=== PATIENT | female | born 1995 | race Two or more races ===

== ENCOUNTER 2022-09-07 15:30 | Emergency (ER) | payer MEDICAID ==
[~2022-09-07] VITALS: Ht 165.1 cm; Wt 88.2 kg
[~2022-09-07 15:30] MED LIST: NORPTMEDS CO
[2022-09-07 19:42] LABS: Urine Bacteria FEW /hpf (None Seen); Urine Blood 3+ /uL (Negative); Urine Hyaline Cast FEW /lpf (0 - 2); Urine Specific Gravity 1.007 (1.001-1.035); Urine WBC 27 /hpf (0 - 5)
[2022-09-07] MEDS ORDERED: HYDROcodone-ACET 10/325MG TAB PO ONE (22:00)
[2022-09-07] MEDS ORDERED: ONDANSETRON ODT 4 MG TAB PO ONE (22:00)
[2022-09-07 22:37] LABS: Basophils # (auto) 0 10 ^3/uL (0-0.2); Basophils % (auto) 0.3 % (0.0-2.0); Eosinophils # (auto) 0 10 ^3/uL (0-0.8); Eosinophils % (auto) 0.2 % (0.0-7.0); Hematocrit 43.2 % (36.0-46.0); Hemoglobin 14.9 g/dL (12.2-16.2); Lymphocytes # (auto) 2.2 10 ^3/uL (0.4-5.4); Lymphocytes % (auto) 22.3 % (10.0-50.0); Mean Corpuscular Hemoglobin 32.2 pg (28.0-32.0); Mean Corpuscular Hgb Conc. 34.5 g/dL (32.0-36.0); Mean Corpuscular Volume 93.2 fL (80.0-100.0); Monocytes # (auto) 0.5 10 ^3/uL (0-1.3); Neutrophils # (auto) 7.3 10 ^3/uL (1.6-8.6); Neutrophils % (auto) 72.2 % (37.0-80.0); Red Blood Cells 4.63 10^6/uL (4.0-5.20); Red Cell Distribution Width 12.5 % (11.8-14.3); White Blood Cell 10.1 10^3/uL (4.4-10.8)
[2022-09-07 22:51] LABS: Partial Thromboplastin Time 28.2 sec (24.6-33.4)
[2022-09-07 22:54] LABS: Albumin 3.8 g/dL (3.4-5.0); Calcium 8.6 mg/dL (8.5-10.1); Potassium 4.1 mmol/L (3.5-5.1)
[2022-09-07 22:56] LABS: BUN/Creatinine Ratio 12.7
[2022-09-07 22:58] LABS: Bilirubin, Total 0.3 mg/dL (0.2-1.0); Total Protein 7.5 g/dL (6.4-8.2)
[2022-09-08 02:26] VITALS: BP 141/74
== END 2022-09-08 02:32 | disposition home or self-care (01) ==
LOC: ER 15:30
DX: O03.9 Complete or unspecified spontaneous abortion without complication (principal); O23.41 Unspecified infection of urinary tract in pregnancy, first trimester; N39.0 Urinary tract infection, site not specified; Z3A.01 Less than 8 weeks gestation of pregnancy
CPT/HCPCS: 36415; 76801; 76817; 80053; 81001; 84702; 85025; 85610; 85730; 86850; 86900; 86901

== ENCOUNTER → 2024-03-15 | Outpatient (CLI) | payer BC ==
[2024-03-15 11:32] LABS: Urine Bacteria None Seen /hpf (None Seen)
[2024-03-15 11:39] LABS: Basophils # (auto) 0 10 ^3/uL (0-0.2); Basophils % (auto) 0.3 % (0.0-2.0); Eosinophils # (auto) 0 10 ^3/uL (0-0.8); Eosinophils % (auto) 0.1 % (0.0-7.0); Hematocrit 42.9 % (36.0-46.0); Hemoglobin 14.8 g/dL (12.2-16.2); Lymphocytes # (auto) 1.2 10 ^3/uL (0.4-5.4); Lymphocytes % (auto) 9.7 % (10.0-50.0); Mean Corpuscular Hemoglobin 32.2 pg (28.0-32.0); Mean Corpuscular Hgb Conc. 34.5 g/dL (32.0-36.0); Mean Corpuscular Volume 93.4 fL (80.0-100.0); Monocytes # (auto) 0.8 10 ^3/uL (0-1.3); Monocytes % (auto) 6.4 % (0.0-12.0); Neutrophils # (auto) 10.3 10 ^3/uL (1.6-8.6); Neutrophils % (auto) 83.5 % (37.0-80.0); Red Blood Cells 4.59 10^6/uL (4.0-5.20); Red Cell Distribution Width 12.8 % (11.8-14.3); White Blood Cell 12.3 10^3/uL (4.4-10.8)
[2024-03-15 11:52] LABS: Urine Blood 1+ /uL (Negative); Urine Clarity Clear (Clear); Urine Color Yellow (Yellow); Urine Mucus FEW (None Seen); Urine Protein, UAD TRACE (Negative); Urine Specific Gravity 1.027 (1.001-1.035); Urine Urobilinogen Normal (Negative); Urine WBC 1 /hpf (0 - 5); Urine pH 6.5 (5.0-9.0)
[2024-03-15 12:23] LABS: Alkaline Phosphatase 66 U/L (46-116)
[2024-03-15 12:24] LABS: Alanine Aminotransferase 11 U/L (7-40); Albumin 4.7 g/dL (3.2-4.8); Anion Gap 5 (5-15); Aspartate Aminotransferase < 8 U/L (13-40); BUN/Creatinine Ratio 10.7 (10.0-20.0); Blood Urea Nitrogen 9 mg/dL (9-23); Calcium 9.3 mg/dL (8.5-10.1); Carbon Dioxide 28 mmol/L (20-30); Chloride 104 mmol/L (98-107); Glucose 102 mg/dL (74-106); Potassium 3.8 mmol/L (3.5-5.1); Sodium 137 mmol/L (136-145)
[2024-03-15 12:25] LABS: Bilirubin, Total 0.7 mg/dL (0.2-1.0); Total Protein 7.8 g/dL (5.7-8.2)
== END | disposition home or self-care (01) ==
LOC: LAB 11:21
PROVIDERS: ATTEND Internal Medicine
DX: Z00.01 Encounter for general adult medical examination with abnormal findings (principal); Z13.1 Encounter for screening for diabetes mellitus; E55.9 Vitamin D deficiency, unspecified; J03.00 Acute streptococcal tonsillitis, unspecified
CPT/HCPCS: 36415; 80053; 81001; 82306; 83036; 84439; 84443; 85025; 86703; 86803

== ENCOUNTER → 2024-03-30 | Outpatient (CLI) | payer BC ==
[2024-03-31 08:06] LABS: RPR Non Reactive (Non Reactive)
== END | disposition home or self-care (01) ==
LOC: LAB 10:36
PROVIDERS: ATTEND Obstetrics & Gynecology
DX: Z11.3 Encounter for screening for infections with a predominantly sexual mode of transmission (principal)
CPT/HCPCS: 36415; 86592; 87340

== ENCOUNTER 2024-08-02 04:53 | Emergency (ER) | payer BC ==
[~2024-08-02] VITALS: Ht 167.6 cm; Wt 39.3 kg
--- NOTE | 2024-08-02 05:39 | ED.PDOC ---
Eye-HPI HPI Comments 29 year old female presents to ER with left eye complaint x 2 days. Patient reports that she has been experiencing redness, yellow crusty drainage, mild left eyelid swelling and 6/10 itchy/burning pain to left eye x 2 days. Notes that she followed up with a provider yesterday with regards to her symptoms and was prescribed Ciprofloxacin antibiotic drops and amoxicillin tablets but states her symptoms appeared worse today prompting her to come to ER for further evaluation. Patient presents to ER ambulatory, with steady gait, in no distress. Denies headache, vision changes, use of contacts, foreign body sensation to left eye or any further symptoms/complaints Chief Complaint: Eye Problem Time Seen by MD: 04:58 Primary Care Provider: UNKNOWN Reviewed Notes: Nurses Notes, Medications, Allergies Allergies: Coded Allergies: NO KNOWN ALLERGIES (Unverified , 08/01/13) Home Meds Reported Medications No Reported Medication (NO REPORTED MEDICATION) Ea, 0 CO UNK, EA PATIENT HAS NO REPORTED MEDICATIONS 08/01/13 Information Source: Patient Mode of Arrival: Ambulatory Past Medical History PAST MEDICAL HISTORY: Denies Surgical History: Denies all surgeries SALES SUPPORT ASSISTANT History: No Pertinent SALES SUPPORT ASSISTANT History Family History Family History: Unknown Social History Smoker: Non-Smoker Alcohol: Denies ETOH Use Drugs: Denies Drug Use Lives In: Home Constitutional: denies: chills, diaphoresis, fatigue, fever, malaise, sweats, weakness, others EENTM: reports: others (As stated in HPI) Respiratory: denies: cough, hemoptysis, orthopnea, SOB at rest, shortness of breath, SOB with excertion, stridor, wheezing, others Cardiovascular: denies: chest pain, dizzy spells, diaphoresis, Dyspnea on exertion, edema, irregular heart beat, left arm pain, lightheadedness, palpitations, PND, syncope, others Gastrointestinal: denies: abdomen distended, abdominal pain, blood streaked bowels, constipated, diarrhea, dysphagia, difficulty swallowing, hematemesis, melena, nausea, poor appetite, poor fluid intake, rectal bleeding, rectal pain, vomiting, others Genitourinary: denies: abnormal vagina bleeding, burning, dyspareunia, dysuria, flank pain, frequency, hematuria, incontinence, pain, , vagina discharge, urgency, others Neurological: denies: dizziness, fainting, headache, left sided numbness, left sided weakness, numbness, paresthesia, pre-existing deficit, right sided numbness, right sided weakness, seizure, speech problems, tingling, tremors, weakness, others Musculoskeletal: denies: back pain, gout, joint pain, joint swelling, muscle pain, muscle stiffness, neck pain, others Integumetry: reports: others (As stated in HPI) Allergic/Immunocompromised: reports: others (As stated in HPI) Hematologic/Lymphatic: denies: anemia, blood clots, easy bleeding, easy bruising, swollen glands, others Endocrine: denies: excessive hunger, excessive sweating, excessive thirst, excessive urination, flushing, intolerance to cold, intolerance to heat, unexplained weight gain, unexplained weight loss, others Psychiatric: denies: anxiety, bipolar disorder, depression, hopeless, panic disorder, schizophrenia, sleepless, suicidal, others Physical Exam General Appearance: No Apparent Distress HEENT: PERRL/EOMI, Pharynx Normal, TMs Normal, Other (Mild subconjunctival injection and minimal yellow crusty drainage noted to left eye, no foreign body appreciated. Mild swelling also noted to left upper eyelid, no further skin changes noted.) Neck: Full Range of Motion, Non-Tender, Normal Respiratory: Chest Non-Tender, Lungs Clear, No Accessory Muscle Use, No Respiratory Distress, Normal Breath Sounds Cardiovascular: No Murmur, No Gallop, Regular Rate/Rhythm Breast Exam: Deferred Gastrointestinal: NOT DONE Genitalia: Deferred Pelvic: Deferred Rectal: Deferred Extremities: Normal capillary refill, Normal range of motion Neurologic: Alert, application systems architect II-XII nml as Tested, No Motor Deficits, Normal Affect, Normal Mood, No Sensory Deficits Cerebellar Function: Normal Reflexes: Normal Skin: Dry, Normal Color, Warm Lymphatic: No Adenopathy Was a procedure done? Was a procedure done?: No Sedation Sedation?: No EENT DIFF Eye: Chalazion, Foreign Body-Corneal, Orbital Cellulits, Periorbital Cellulits X-Ray, Labs, Meds, VS Vital Signs Date Time Temp Pulse Resp B/P (MAP) Pulse Ox O2 Delivery O2 Flow Rate FiO2 08/02/24 05:20 98.6 67 16 127/77 (94) 98 Importance of good hand hygiene discussed and advised Advised to continue current medications as prescribed Advised to follow up with Ophthalmology in three days if symptoms do not improve Advised to follow up with PCP in 1-2 days Patient verbalized understanding and agreeable with current plan of care Advised to return to ER immediately if symptoms worsen Time of 1ST Reevaluation: 05:12 Reevaluation 1ST: N/A Patient Education/Counseling: Diagnosis, Treatment, Prognosis, Need For Follow Up Family Education/Counseling: No Family Present Departure 1 Departure Time of Disposition: 05:32 Impression: Primary Impression: Bacterial conjunctivitis of left eye Disposition: HOME / SELF CARE / HOMELESS Condition: Stable Discharged With: Self Critical Care Note Critical Care Time?: No Stability Stability form required: No Heart Score Heart Score: Heart Score Response (Comments) Value History N/A 0 EKG N/A 0 Age N/A 0 Risk Factors N/A 0 Troponin N/A 0 Total 0 BRYANT MCKEON Aug 02, 2024 05:39
[2024-08-02 05:50] VITALS: BP 120/70; TEMP 98.6
[2024-08-02 06:05] VITALS: PULSE 67; RESP 16; O2SAT 98
== END 2024-08-02 06:10 | disposition home or self-care (01) ==
LOC: ER 04:53
DX: H10.89 Other conjunctivitis (principal)

== ENCOUNTER → 2024-08-16 | Outpatient (CLI) | payer BC | END | disposition home or self-care (01) | LOC: LAB 11:31 | PROVIDERS: ATTEND Internal Medicine | DX: B02.9 Zoster without complications (principal) | CPT/HCPCS: 86787 ==

== ENCOUNTER → 2024-09-22 | Outpatient (CLI) | payer BC | END | disposition home or self-care (01) | LOC: LAB 13:52 | PROVIDERS: ATTEND Family Medicine | DX: D48.5 Neoplasm of uncertain behavior of skin (principal) ==

== ENCOUNTER 2025-02-13 12:39 | Outpatient (CLI) | payer BC ==
[2025-02-14 19:06] LABS: Chlamydia Trachomatis, NAA Negative (Negative); Neisseria gonorrhoeae, NAA Negative (Negative)
== END 2025-02-13 17:00 | disposition home or self-care (01) ==
LOC: LAB 12:39
PROVIDERS: ATTEND Internal Medicine
DX: Z72.51 High risk heterosexual behavior (principal)
CPT/HCPCS: 36415; 86703; 86780

== ENCOUNTER 2025-03-06 12:27 | Outpatient (CLI) | payer BC | END 2025-03-06 17:00 | disposition home or self-care (01) | LOC: LAB 12:27 | PROVIDERS: ATTEND Internal Medicine | DX: Z32.01 Encounter for pregnancy test, result positive (principal) | CPT/HCPCS: 36415; 84702 ==

== ENCOUNTER → 2025-03-12 | Outpatient (CLI) | payer BC ==
[2025-03-12 08:18] LABS: Urine Bacteria FEW /hpf (None Seen); Urine Blood 1+ /uL (Negative); Urine Clarity Clear (Clear); Urine Color Yellow (Yellow); Urine Mucus FEW (None Seen); Urine Protein, UAD Negative (Negative); Urine Specific Gravity 1.025 (1.001-1.035); Urine Squamous Epithelial Cell FEW /hpf (<5); Urine Urobilinogen Normal (Negative); Urine WBC < 1 /HPF (0-5); Urine pH 5.5 (5.0-9.0)
[2025-03-12 08:26] LABS: Basophils # (auto) 0 10 ^3/uL (0-0.2); Basophils % (auto) 0.9 % (0.0-2.0); Eosinophils # (auto) 0.1 10 ^3/uL (0-0.8); Eosinophils % (auto) 1.8 % (0.0-7.0); Hematocrit 41.5 % (36.0-46.0); Hemoglobin 14.5 g/dL (12.2-16.2); Lymphocytes # (auto) 2.2 10 ^3/uL (0.4-5.4); Lymphocytes % (auto) 38.7 % (10.0-50.0); Mean Corpuscular Hemoglobin 31.7 pg (28.0-32.0); Mean Corpuscular Hgb Conc. 34.9 g/dL (32.0-36.0); Mean Corpuscular Volume 90.9 fL (80.0-100.0); Monocytes # (auto) 0.5 10 ^3/uL (0-1.3); Monocytes % (auto) 8.6 % (0.0-12.0); Neutrophils # (auto) 2.8 10 ^3/uL (1.6-8.6); Platelet Count (auto) 209 10^3/uL (140-450); Red Blood Cells 4.56 10^6/uL (4.0-5.20); Red Cell Distribution Width 12.4 % (11.8-14.3); White Blood Cell 5.7 10^3/uL (4.4-10.8)
[2025-03-12 08:58] LABS: Beta HCG, Quantitative 481.9 mIU/mL (1.5-4.2)
[2025-03-12 09:02] LABS: Thyroid Stimulating Hormone 0.83 uIU/mL (0.55-4.78)
[2025-03-12 09:05] LABS: Alanine Aminotransferase 10 U/L (7-40); Albumin 4.2 g/dL (3.2-4.8); Alkaline Phosphatase 70 U/L (46-116); Anion Gap 8 (5-15); BUN/Creatinine Ratio 10.4 (10.0-20.0); Bilirubin, Total 0.4 mg/dL (0.2-1.0); Calcium 9.3 mg/dL (8.7-10.4); Carbon Dioxide 24 mmol/L (20-31); Cholesterol 176 mg/dL (< 200); Glucose 103 mg/dL (74-106); HDL Cholesterol 42 mg/dL (40-59); Potassium 3.7 mmol/L (3.5-5.1); Sodium 139 mmol/L (136-145); Triglycerides 130 mg/dL (< 150)
[2025-03-12 09:07] LABS: Blood Urea Nitrogen 8 mg/dL (9-23); Chloride 107 mmol/L (98-107)
[2025-03-12 09:18] LABS: Aspartate Aminotransferase 10 U/L (13-40)
[2025-03-12 10:01] LABS: LDL Cholesterol 130 mg/dL (< 100)
[2025-03-12 11:28] LABS: Free T4 (Free Thyroxine) 1.26 ng/dL (0.89-1.76)
== END | disposition home or self-care (01) ==
LOC: LAB 07:34
PROVIDERS: ATTEND Internal Medicine
DX: Z32.01 Encounter for pregnancy test, result positive (principal)
CPT/HCPCS: 36415; 80053; 80061; 81001; 82670; 83036; 84144; 84439; 84443; 84702; 85025

== ENCOUNTER 2025-03-15 07:04 | Emergency (ER) | payer BC ==
[~2025-03-15] VITALS: Ht 167.6 cm; Wt 84.8 kg
--- NOTE | 2025-03-15 07:22 | ED.PDOC ---
SUPERVISOR FABRICATION DEPARTMENT HPI Comments HPI: 29 y/o F, presents to the ED for CC of vaginal bleeding. Patient states, that she is currently [id number] and has been experiencing spontaneous vaginal bleeding with associated suprapubic abdominal cramping x2days. Patient reports, that she does not currently have a OB-DIRECTOR PARK d/t first scheduled appointment being until 03/24/25. Patient denies trauma, injury, fall, nausea, fatigue, vaginal discharge, or blood clots. No other symptoms or modifying factors present at this time. No recent intercourse Initial Vitals BP:120/75 HR:75 RR:17 O2:92% Temp:98.3 Past Medical History: DENIES ANY Past Surgical History: DENIES ANY Social History: Denies ETOH, smoking, and drug use. Medications: DENIES ANY Allergies: NKA Denies any use of alcohol drugs or tobacco. HPI: Poor Historian. REVIEW OF SYSTEMS: CONSTITUTIONAL: Denies acute: fever, diaphoresis, chills, generalized weakness. HEAD: Denies acute: headache, photophobia Eyes: Denies acute: Double vision, vision loss, eye pain, eye discharge. EARS: Denies acute: tinnitus, hearing loss, ear discharge, ear pain, THROAT: Denies acute: sore throat, swelling, difficulty swallowing , pain with swallowing, change in voice. NECK: Denies acute: neck pain, neck swelling, stiff neck. HEART: Denies acute : chest pain, palpitations, LUNGS: Denies acute: SOB, wheezing, cough, hemoptysis ABDOMEN: Denies acute: abdominal pain, Nausea, Vomiting, diarrhea, melena , hematemesis, hematochezia SKIN: Denies acute: rash, redness, lesions, itchiness. EXTREMITIES: Denies acute: calf pain, numbness, tingling, weakness, denies pain in extremity. Denies acute: Low back pain. Neuro: Denies acute: focal neurological deficit, motor or sensory focal neurological deficit, tremors, seizure like activity, confusion, dizziness, change in mental status, loss of bowel or bladder function, cauda equina like symptoms. : Denies acute: dysuria, hematuria, flank pain, increase in urinary frequency. PSYCH: Denies acute: hallucination, suicidal ideation, homicidal ideation. FEMALE: Denies acute: foul odor, unusual discharge. PHYSICAL EXAM: General: ---mild-----acute distress, awake and alert. Head: normocephalic, atraumatic. Neck: supple, trachea is midline, no swelling. Throat: Normal phonation. Eyes:, no erythema, no purulent discharge, no proptosis, no icterus. Heart: regular rate, regular rhythm, no significant murmur appreciated. Lungs: no apparent respiratory distress, Able to speak in full sentences. No wheezing, no rhonchi, no crackles. No stridors Clear to auscultation bilaterally. Abdomen: Suprapubic tender to palpation, non distended, soft, no guarding, no rebound, + bowel sounds. Neuro: Awake, Alert, oriented to name, self, situation, follows commands GCS=15. Speech is normal. Skin: no petechia, no purpura, no cyanosis, non-pale, not jaundice. Lower extremities: --no - Pitting edema no deformity, no focal swelling, no calf TTP. Makes eye contact. moves all four extremities. Face: no apparent facial droop. Ambulating in the ED independently. ED COURSE: DISCLAIMER: This medical document was created using an electronic medical record system with voice recognition software and computerized dictation system. Although this document has been carefully reviewed, there might still be some phonetic and typographical errors. Occasional wrong-word or "sound-alike" substitutions may have occurred due to the inherent limitations of voice recognition software. These areas are purely typographical due to imperfections of the software programs and do not reflect any compromise in the patient's medical care. Please read the chart carefully and recognize, using context, where these substitutions have occurred. Time Seen by MD: 07:15 Reviewed Notes: Nurses Notes, Medications, Allergies Allergies: Coded Allergies: NO KNOWN ALLERGIES (Unverified , 08/01/13) Home Meds Reported Medications No Reported Medication (NO REPORTED MEDICATION) Ea, 0 CO UNK, EA PATIENT HAS NO REPORTED MEDICATIONS 08/01/13 Information Source: Patient Mode of Arrival: Ambulatory Timing: Days Prehospital treatment: None Severity: Moderate Vaginal Discharge: None Vaginal Lesions: None Bleeding Quality: Bright Red Vaginal Mass: None Onset Of Mass/Bleeding: Spontaneous Sexual Activity: Last Consensual [place]: Unknown Control: None History of: Current Blood Type: Unknown Associated Signs and Symptoms: Vaginal Bleeding, Abdominal Pain Past Medical History PAST MEDICAL HISTORY: Denies Surgical History: Denies all surgeries DIRECTOR PARK History: No Pertinent DIRECTOR PARK History Family History Family History: Unknown Social History Smoker: Non-Smoker Alcohol: Denies ETOH Use Drugs: Denies Drug Use Lives In: Home Constitutional: denies: chills, diaphoresis, fatigue, fever, malaise, sweats, weakness, others EENTM: denies: blurred vision, double vision, ear bleeding, ear discharge, ear drainage, ear pain, ear ringing, eye pain, eye redness, hearing loss, mouth pain, mouth swelling, nasal discharge, nose bleeding, nose congestion, nose pain, photophobia, tearing, throat pain, throat swelling, voice changes, others Respiratory: denies: cough, hemoptysis, orthopnea, SOB at rest, shortness of breath, SOB with excertion, stridor, wheezing, others Cardiovascular: denies: chest pain, dizzy spells, diaphoresis, Dyspnea on exertion, edema, irregular heart beat, left arm pain, lightheadedness, palpitations, PND, syncope, others Gastrointestinal: denies: abdomen distended, abdominal pain, blood streaked bowels, constipated, diarrhea, dysphagia, difficulty swallowing, hematemesis, melena, nausea, poor appetite, poor fluid intake, rectal bleeding, rectal pain, vomiting, others Genitourinary: reports: abnormal vagina bleeding; denies: burning, dyspareunia, dysuria, flank pain, frequency, hematuria, incontinence, pain, , vagina discharge, urgency, others Neurological: denies: dizziness, fainting, headache, left sided numbness, left sided weakness, numbness, paresthesia, pre-existing deficit, right sided numbness, right sided weakness, seizure, speech problems, tingling, tremors, weakness, others Musculoskeletal: denies: back pain, gout, joint pain, joint swelling, muscle pain, muscle stiffness, neck pain, others Integumetry: denies: bruises, change in color, change in hair/nails, dryness, laceration, lesions, lumps, rash, wounds, others Allergic/Immunocompromised: denies: Difficulty Healing, Frequent Infections, Hives, Itching, others Hematologic/Lymphatic: denies: anemia, blood clots, easy bleeding, easy bruising, swollen glands, others Endocrine: denies: excessive hunger, excessive sweating, excessive thirst, excessive urination, flushing, intolerance to cold, intolerance to heat, unexplained weight gain, unexplained weight loss, others Psychiatric: denies: anxiety, bipolar disorder, depression, hopeless, panic disorder, schizophrenia, sleepless, suicidal, others All Other Systems: Reviewed and Negative Physical Exam General Appearance: Other HEENT: Other Neck: Other Respiratory: Other Cardiovascular: Other Breast Exam: Deferred Gastrointestinal: Other Genitalia: Deferred Pelvic: Other Rectal: Other Extremities: Other Neurologic: Other Cerebellar Function: Other Reflexes: Other Skin: Other Lymphatic: Other Was a procedure done? Was a procedure done?: No Differential Diagnosis (DIRECTOR PARK) Vaginal Bleeding: - Complete, - Incomplete, - Inevitable, - Missed, - Threatened, Abruptio Placentae, Blood Loss Anemia, Cervicitis, Dysmenorrhea, Ectopic , Hormonal, Menorrhagia, Menometrorrhagia, Menstrual Bleeding, Myomatous Uterus, PID, Placenta Previa, Precipitous Hct, Trauma, UTI, Vaginitis, Other (Differential diagnosis includes but not limited to DU B, menorrhea, metromenorrhagia, neoplasm, coagulopathy,, trauma, miscarriage, placenta previa, placental abruption, ) X-Ray, Labs, Meds, VS Vital Signs Date Time Temp Pulse Resp B/P (MAP) Pulse Ox O2 Delivery O2 Flow Rate FiO2 03/15/25 09:42 74 78 97 Room Air* 0 21 03/15/25 09:13 67 18 98 Room Air 03/15/25 09:13 98.4 67 18 119/69 (86) 98 98.4 03/15/25 07:22 98.3 75 17 120/75 (90) 99 98.3 Lab Test 03/15/25 07:41 03/15/25 07:35 Range/Units Urine Color Light-yellow Yellow Urine Clarity Clear Clear Urine pH 5.5 5.0-9.0 Urine Specific Garner 1.015 1.001-1.035 Urine Protein Negative Negative Urine Ketones Negative Negative Urine Blood 1+ H Negative /uL Urine Nitrite Negative Negative Urine Bilirubin Negative Negative Urine Urobilinogen Normal Negative mg/dL Urine Leukocyte Esterase Negative Negative /uL Urine RBC 2 0 - 4 /hpf Urine Microscopic WBC < 1 0-5 /HPF Urine Squamous Epithelial Cells Few <5 /hpf Urine Bacteria None seen None Seen /hpf Urine Glucose Normal Normal mg/dL White Blood Count 5.0 4.4-10.8 10^3/uL Red Blood Count 4.70 4.0-5.20 10^6/uL Hemoglobin 14.9 12.2-16.2 g/dL Hematocrit 43.4 36.0-46.0 % Mean Corpuscular Volume 92.3 80.0-100.0 fL Mean Corpuscular Hemoglobin 31.7 28.0-32.0 pg Mean Corpuscular Hemoglobin Concent 34.3 32.0-36.0 g/dL Red Cell Distribution Width 12.8 11.8-14.3 % Platelet Count 229 140-450 10^3/uL Mean Platelet Volume 8.2 6.9-10.8 fL Neutrophils (%) (Auto) 57.4 37.0-80.0 % Lymphocytes (%) (Auto) 31.2 10.0-50.0 % Monocytes (%) (Auto) 9.5 0.0-12.0 % Eosinophils (%) (Auto) 1.0 0.0-7.0 % Basophils (%) (Auto) 0.9 0.0-2.0 % Neutrophils # (Auto) 2.9 1.6-8.6 10 ^3/uL Lymphocytes # (Auto) 1.6 0.4-5.4 10 ^3/uL Monocytes # (Auto) 0.5 0-1.3 10 ^3/uL Eosinophils # (Auto) 0.1 0-0.8 10 ^3/uL Basophils # (Auto) 0 0-0.2 10 ^3/uL Nucleated Red Blood Cells 0.0 % Sodium Level 140 136-145 mmol/L Potassium Level 3.5 3.5-5.1 mmol/L Chloride Level 106 98-107 mmol/L Carbon Dioxide Level 26 20-31 mmol/L Anion Gap 8 5-15 Blood Urea Nitrogen 8 L 9-23 mg/dL Creatinine 0.78 0.550-1.02 mg/dL Glomerular Filtration Rate Calc 105 >90 mL/min BUN/Creatinine Ratio 10.3 10.0-20.0 Serum Glucose 100 74-106 mg/dL Calcium Level 9.4 8.7-10.4 mg/dL Total Bilirubin 0.5 0.2-1.0 mg/dL Aspartate Amino Transferase (AST) 15 13-40 U/L Alanine Aminotransferase (ALT) 10 7-40 U/L Alkaline Phosphatase 67 46-116 U/L Total Protein 7.3 5.7-8.2 g/dL Albumin 4.4 3.2-4.8 g/dL Beta HCG, Quantitative 370.3 H 1.5-4.2 mIU/mL [place] [address] Ph: [phone] DIAGNOSTIC IMAGING Diagnostic Imaging Report : [id number] Signed PATIENT: DENY ANTHONY ACCT: [id number] UNIT: [id number] : 1995 LOC: ER ROOM / BED: / AGE / SEX: 29 / F ADM STATUS: REG ER SERVICE 0720 ORDERING PHYSICIAN: KENTON BERGER DO PROCEDURE(s): OB4US - OB ULTRASOUND COMP LESS 14WKS REASON: vag bleed in 1st trimester. h/o miscarriage. ORDER NUMBER(s): [id number], ACCESSION NUMBER(s): [id number] CLINICAL HISTORY: Vaginal bleeding in first-trimester . History of miscarriage. COMPARISON: OB ULTRASOUND COMP LESS 14WKS on DOS: 09/07/22 TECHNIQUE: Transvaginal and transabdominal grayscale sonographic imaging of the uterus and ovaries was performed, assisted by color Doppler technique. Duplex Doppler ultrasound of both ovaries was also performed. FINDINGS: The uterus measures 7.3 x 5.9 x 4.3 cm. There is homogeneous echogenicity. Endometrial thickness measures 1.3 cm, is mildly heterogeneous. No intrauterine visualized. No gestational sac. Right ovary measures 2.5 x 2.1 x 2.0 cm. Arterial and venous blood flow demonstrated. Left ovary measures 2.2 x 1.91.6 cm. Arterial and venous blood flow demonstrated. IMPRESSION: 1. No intrauterine visualized. 2. Thickened, somewhat heterogeneous endometrium. Retained products of conception not excluded. Correlate with clinical findings. 3. Unremarkable sonographic appearance of both ovaries. ATED BY: CHUCK LINDER DO DICTATED DATE/TIME: 03/15/25847 SIGNED BY: CHUCK LINDER DO SIGNED DATE/TIME: 03/15/25847 CC: Time of 1ST Reevaluation: 07:45 Reevaluation 1ST: Unchanged Patient Education/Counseling: Diagnosis, Treatment Family Education/Counseling: No Family Present Comments Patient presented with the above HPI.--vaginal bleeding in ----workup was initiated. patient was found with the above mentioned diagnosis. the following medications were ordered: please refer to order lists of meds and tests obtained by myself Dr. Berger. Patient ED course and VS have been stabilized. Patient has been reassessed in the ED and remained in a stable condition. Pertinent incidental findings were discussed with the patient and/or family. Patient/family voices understanding and is agreeable with plan. Patient has been observed in the ED adequate length of time to insure improvement/stability. Escalation of care considered: Consideration of escalation to observation or admission Patient was DISCHARGED home in a stable condition. All the reports of any imaging studies that were ordered by myself were reviewed by myself. Departure 1 Departure Time of Disposition: 09:24 Impression: Primary Impression: Vaginal bleeding in patient after first trimester Disposition: 01 HOME / SELF CARE / HOMELESS Condition: Stable Additional Instructions: Additional instructions: You MUST follow-up with your primary care/family doctor in 1 to 2 days. If you are unable to see your primary care/family doctor, please return to our emergency room for re-assessment and re-evaluation in 1 to 2 days. Return to the emergency room here in our facility or to the nearest ER [facility] if your symptoms change or worsen. CONSULTATIONS: you MUST Follow-up for consultation as soon as possible with: [facility]yn[facility] doctor in 1-2 days. Please call for appointment You MUST call the consultants office yourself to make an appointment. You may need to arrange that through your insurance and/or your primary/family doctor. If you are unable to see the solar energy consultant and designer in 1 to 2 days, you must return to our emergency room (or any other ER of your choice) for re-assessment and re- evaluation. Adequate fluid hydration. Repeat beta-hCG levels in 48-72 hours. Repeat pelvic ultrasound in 4-5 days. Absolute pelvic rest. Below is a copy of your radiological report for follow up: [facility] [id number] [facility] [id number] Ph: [phone] DIAGNOSTIC IMAGING Diagnostic Imaging Report : [id number] Signed PATIENT: DENY ANTHONY ACCT: [id number] UNIT: [id number] : 1995 LOC: ER ROOM / BED: / AGE / SEX: 29 / F ADM STATUS: REG ER SERVICE 9 ORDERING PHYSICIAN: KENTON BERGER DO PROCEDURE(s): OB4US - OB ULTRASOUND COMP LESS 14WKS REASON: vag bleed in 1st trimester. h/o miscarriage. ORDER NUMBER(s): [id number], ACCESSION NUMBER(s): [id number] CLINICAL HISTORY: Vaginal bleeding in first-trimester . History of mis carriage. COMPARISON: OB ULTRASOUND COMP LESS 14WKS on DOS: 09/07/22 TECHNIQUE: Transvaginal and transabdominal grayscale sonographic imaging of the uterus and ovaries was performed, assisted by color Doppler technique. Duplex Doppler ultrasound of both ovaries was also performed. FINDINGS: The uterus measures 7.3 x 5.9 x 4.3 cm. There is homogeneous echogenicity. Endometrial thickness measures 1.3 cm, is mildly heterogeneous. No intrauterine visualized. No gestational sac. Right ovary measures 2.5 x 2.1 x 2.0 cm. Arterial and venous blood flow demonstrated. Left ovary measures 2.2 x 1.91.6 cm. Arterial and venous blood flow demonstrated. IMPRESSION: 1. No intrauterine visualized. 2. Thickened, somewhat heterogeneous endometrium. Retained products of conception not excluded. Correlate with clinical findings. 3. Unremarkable sonographic appearance of both ovaries. ATED BY: CHUCK LINDER DO DICTATED DATE/TIME: 03/15/25847 SIGNED BY: CHUCK LINDER DO SIGNED DATE/TIME: 03/15/25847 CC: Discharged With: Self Critical Care Note Critical Care Time?: No Stability Stability form required: No Heart Score Heart Score: Heart Score Response (Comments) Value History N/A 0 EKG N/A 0 Age N/A 0 Risk Factors N/A 0 Troponin N/A 0 Total 0 I personally scribed for ABKENTON SALINAS DO ([email or web address]) on 03/15/25 at 07:22. Electronically submitted by Muriel Van [email or web address]). I personally scribed for ABKENTON J DO ([email or web address]) on 03/15/25 at 07:25. Electronically submitted by Muriel Van ([email or web address]). I personally scribed for ABKENTON SALINAS J DO ([email or web address]) on 03/15/25 at 08:09. Electronically submitted by Muriel Van ([email or web address]). I personally scribed for ABKENTON SALINAS J DO ([email or web address]) on 03/15/25 at 08:40. Electronically submitted by Muriel Van ([email or web address]). I personally scribed for ABKENTON SALINAS J DO ([email or web address]) on 03/15/25 at 09:06. Electronically submitted by Muriel Van [email or web address]). KENTON BERGER DO Mar 15, 2025 07:22
[2025-03-15 07:47] LABS: Hematocrit 43.4 % (36.0-46.0); Hemoglobin 14.9 g/dL (12.2-16.2); Mean Corpuscular Hemoglobin 31.7 pg (28.0-32.0); Mean Corpuscular Volume 92.3 fL (80.0-100.0); Nucleated Red Blood Cells % 0.0 %
[2025-03-15 08:05] LABS: Alanine Aminotransferase 10 U/L (7-40); Albumin 4.4 g/dL (3.2-4.8); Alkaline Phosphatase 67 U/L (46-116); Anion Gap 8 (5-15); BUN/Creatinine Ratio 10.3 (10.0-20.0); Bilirubin, Total 0.5 mg/dL (0.2-1.0); Calcium 9.4 mg/dL (8.7-10.4); Carbon Dioxide 26 mmol/L (20-31); Chloride 106 mmol/L (98-107); Glucose 100 mg/dL (74-106); Potassium 3.5 mmol/L (3.5-5.1); Sodium 140 mmol/L (136-145); Total Protein 7.3 g/dL (5.7-8.2)
[2025-03-15 08:07] LABS: Blood Urea Nitrogen 8 mg/dL (9-23)
[2025-03-15 08:09] LABS: Urine Protein, UAD Negative (Negative)
--- NOTE | 2025-03-15 08:50 | DVH ---
CLINICAL HISTORY: Vaginal bleeding in first-trimester . History of miscarriage. COMPARISON: OB ULTRASOUND COMP LESS 14WKS on DOS: 09/07/22 TECHNIQUE: Transvaginal and transabdominal grayscale sonographic imaging of the uterus and ovaries wa s performed, assisted by color Doppler technique. Duplex Doppler ultrasound of both ovaries was also performed. FINDINGS: The uterus measures 7.3 x 5.9 x 4.3 cm. There is homogeneous echogenicity. Endometrial thic kness measures 1.3 cm, is mildly heterogeneous. No intrauterine visualized. No gestational sac. Right ovary measures 2.5 x 2.1 x 2.0 cm. Arterial and venous blood flow demonstrated. Left ovary measures 2.2 x 1.91.6 cm. Arterial and venous blood flow demonstrated. IMPRESSION: 1. No intrauterine visualized. 2. Thickened, somewhat heterogeneous endometrium. Retained products of conception not excluded. Corre late with clinical findings. 3. Unremarkable sonographic appearance of both ovaries.
[2025-03-15 09:13] VITALS: BP 119/69; TEMP 98.4
[2025-03-15 09:42] VITALS: PULSE 74; RESP 78; O2SAT 97
== END 2025-03-15 09:45 | disposition home or self-care (01) ==
LOC: ER 07:04
DX: O20.9 Hemorrhage in early pregnancy, unspecified (principal); O26.891 Other specified pregnancy related conditions, first trimester; R10.30 Lower abdominal pain, unspecified; Z3A.01 Less than 8 weeks gestation of pregnancy; R10.2 Pelvic and perineal pain
CPT/HCPCS: 36415; 76801; 76817; 80053; 81001; 84702; 85025; 86850; 86900; 86901

== ENCOUNTER 2025-03-19 07:35 | Outpatient (CLI) | payer BC | END 2025-03-19 17:00 | disposition home or self-care (01) | LOC: LAB 07:35 | PROVIDERS: ATTEND Internal Medicine | DX: O26.891 Other specified pregnancy related conditions, first trimester (principal); R82.90 Unspecified abnormal findings in urine; Z3A.01 Less than 8 weeks gestation of pregnancy | CPT/HCPCS: 36415; 84702 ==

== ENCOUNTER 2025-03-20 09:39 | Outpatient (CLI) | payer BC | END 2025-03-20 19:33 | disposition home or self-care (01) | LOC: LAB 09:39 | PROVIDERS: ATTEND Nurse Practitioner Women's Health | DX: O03.39 Incomplete spontaneous abortion with other complications (principal); Z3A.00 Weeks of gestation of pregnancy not specified | CPT/HCPCS: 36415; 82670; 84144; 84702 ==

== ENCOUNTER 2025-03-26 08:00 | Outpatient (CLI) | payer BC | END 2025-03-26 17:00 | disposition home or self-care (01) | LOC: LAB 08:00 | PROVIDERS: ATTEND Nurse Practitioner Women's Health | DX: O03.9 Complete or unspecified spontaneous abortion without complication (principal) | CPT/HCPCS: 36415; 82670; 84144; 84702 ==

== ENCOUNTER 2025-03-28 06:22 | Outpatient (CLI) | payer BC ==
[2025-03-28] MEDS ORDERED: ZOFR4T PO (17:13)
[2025-03-28] MEDS ORDERED: DOCU-94 PO (17:13)
[2025-03-28] MEDS ORDERED: IBUP-1456 PO (17:13)
[2025-03-28] MEDS ORDERED: HYDR-4072 PO (17:13)
== END 2025-03-28 17:00 | disposition home or self-care (01) ==
LOC: LAB 06:22
PROVIDERS: ATTEND Obstetrics & Gynecology
DX: O03.9 Complete or unspecified spontaneous abortion without complication (principal)
CPT/HCPCS: 36415; 84702

== ENCOUNTER 2025-03-28 08:50 | Inpatient (IN) | payer BC ==
[~2025-03-28] VITALS: Ht 167.6 cm; Wt 93.3 kg
[2025-03-28] MEDS ORDERED: SODIUM CHLORIDE 0.9% 1,000 ML IV ONE (09:00)
--- NOTE | 2025-03-28 09:09 | ED.PDOC ---
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 Patient reports that she was at follow up appointment with Dr. Murrell today when after an US was performed in her office, there was a suspected ectopic found on the ultrasound. Patient relays that Dr. Murrell advised her to come to the ED for admission and she will take the patient to the OR later today. Patient denies any abdominal pain, dysuria, vaginal bleeding, dizziness, fever, or N/V. Chief Complaint: Abnormal LAB's Time Seen by MD: 09:06 Reviewed Notes: Nurses Notes, Medications, Allergies Allergies: Coded Allergies: NO KNOWN ALLERGIES (Unverified , 08/01/13) Home Meds Active Scripts Ondansetron Odt 4MG Tab (ZOFRAN PO) 4 Mg Tb, 4 MG PO Q4HPRN PRN for 10 Days, #50 TAB ODT TAB-DISSOLVE IN MOUTH, THEN SWALLOW Prov:KWAN MURRELL DO 03/28/25 Ibuprofen (Ibuprofen) 800 Mg Tab, 800 MG PO TID for 4 Days, #16 TAB Prov:KWAN MURRELL DO 03/28/25 Hydrocodone-Acetaminophen (Hydrocodone/Acetaminophen 10-325 mg) 1 Tab Tab, 1 TAB PO Q6HPRN PRN for 7 Days, #28 TAB Prov:KWAN MURRELL DO 03/28/25 Docusate Sodium (Colace) 100 Mg Cap, 1 CAP PO BID, #60 CAP 2 Refills Prov:KWAN MURRELL DO 03/28/25 Reported Medications No Reported Medication (NO REPORTED MEDICATION) Ea, 0 CO UNK, EA PATIENT HAS NO REPORTED MEDICATIONS 08/01/13 Information Source: Patient Mode of Arrival: Ambulatory Timing: Hours Prehospital treatment: None Severity: Severe Past Medical History PAST MEDICAL HISTORY: Denies Surgical History: Denies all surgeries CATERING AND EVENTS MANAGER History: No Pertinent CATERING AND EVENTS MANAGER History Family History Family History: Reviewed,noncontributory to illness, Unknown Social History Smoker: Non-Smoker Alcohol: Denies ETOH Use Drugs: Denies Drug Use Lives In: Home Constitutional: denies: chills, diaphoresis, fatigue, fever, malaise, sweats, weakness, others EENTM: denies: blurred vision, double vision, ear bleeding, ear discharge, ear drainage, ear pain, ear ringing, eye pain, eye redness, hearing loss, mouth pain, mouth swelling, nasal discharge, nose bleeding, nose congestion, nose pain, photophobia, tearing, throat pain, throat swelling, voice changes, others Respiratory: denies: cough, hemoptysis, orthopnea, SOB at rest, shortness of breath, SOB with excertion, stridor, wheezing, others Cardiovascular: denies: chest pain, dizzy spells, diaphoresis, Dyspnea on exertion, edema, irregular heart beat, left arm pain, lightheadedness, palpitations, PND, syncope, others Gastrointestinal: denies: abdomen distended, abdominal pain, blood streaked bowels, constipated, diarrhea, dysphagia, difficulty swallowing, hematemesis, melena, nausea, poor appetite, poor fluid intake, rectal bleeding, rectal pain, vomiting, others Genitourinary: denies: abnormal vagina bleeding, burning, dyspareunia, dysuria, flank pain, frequency, hematuria, incontinence, pain, , vagina dischar ge, urgency, others Neurological: denies: dizziness, fainting, headache, left sided numbness, left sided weakness, numbness, paresthesia, pre-existing deficit, right sided numbness, right sided weakness, seizure, speech problems, tingling, tremors, weakness, others Musculoskeletal: denies: back pain, gout, joint pain, joint swelling, muscle pain, muscle stiffness, neck pain, others Integumetry: denies: bruises, change in color, change in hair/nails, dryness, laceration, lesions, lumps, rash, wounds, others Allergic/Immunocompromised: denies: Difficulty Healing, Frequent Infections, Hives, Itching, others Hematologic/Lymphatic: denies: anemia, blood clots, easy bleeding, easy bruising, swollen glands, others Endocrine: denies: excessive hunger, excessive sweating, excessive thirst, excessive urination, flushing, intolerance to cold, intolerance to heat, unexplained weight gain, unexplained weight loss, others Psychiatric: denies: anxiety, bipolar disorder, depression, hopeless, panic disorder, schizophrenia, sleepless, suicidal, others All Other Systems: Reviewed and Negative Physical Exam General Appearance: No Apparent Distress, Normal HEENT: Normal ENT Inspection, Pharynx Normal, TMs Normal Neck: Full Range of Motion, Non-Tender, Normal, Normal Inspection Respiratory: Chest Non-Tender, Lungs Clear, No Accessory Muscle Use, No Respiratory Distress, Normal Breath Sounds Cardiovascular: No Edema, No JVD, No Murmur, No Gallop, Normal Peripheral Pulses, Regular Rate/Rhythm Breast Exam: Deferred Gastrointestinal: No Organomegaly, Non Tender, No Pulsatile Mass, Normal Bowel Sounds, Soft Genitalia: Deferred Pelvic: Deferred Rectal: Deferred Extremities: No calf tenderness, Normal capillary refill, Normal inspection, Normal range of motion, Non-tender, No pedal edema Musculoskeletal : Apperance: Normal Neurologic: Alert, toll patrolman II-XII nml as Tested, No Motor Deficits, Normal Affect, Normal Mood, No Sensory Deficits Cerebellar Function: Normal Reflexes: Normal Skin: Dry, Normal Color, Warm Lymphatic: No Adenopathy Was a procedure done? Was a procedure done?: No Differential Diagnosis (CATERING AND EVENTS MANAGER) Vaginal Bleeding: Ectopic X-Ray, Labs, Meds, VS Vital Signs Date Time Temp Pulse Resp B/P (MAP) Pulse Ox O2 Delivery O2 Flow Rate FiO2 03/28/25 09:15 98.3 65 16 120/65 (83) 93 98.3 03/28/25 09:15 65 16 98 Room Air* 0 21 03/28/25 08:58 97.5 73 20 135/82 (99) 97 97.5 Lab Test 03/28/25 09:10 Range/Units White Blood Count 4.9 4.4-10.8 10^3/uL Red Blood Count 4.62 4.0-5.20 10^6/uL Hemoglobin 14.7 12.2-16.2 g/dL Hematocrit 42.7 36.0-46.0 % Mean Corpuscular Volume 92.3 80.0-100.0 fL Mean Corpuscular Hemoglobin 31.8 28.0-32.0 pg Mean Corpuscular Hemoglobin Concent 34.4 32.0-36.0 g/dL Red Cell Distribution Width 12.7 11.8-14.3 % Platelet Count 235 140-450 10^3/uL Mean Platelet Volume 7.8 6.9-10.8 fL Neutrophils (%) (Auto) 54.2 37.0-80.0 % Lymphocytes (%) (Auto) 36.8 10.0-50.0 % Monocytes (%) (Auto) 7.0 0.0-12.0 % Eosinophils (%) (Auto) 1.2 0.0-7.0 % Basophils (%) (Auto) 0.8 0.0-2.0 % Neutrophils # (Auto) 2.6 1.6-8.6 10 ^3/uL Lymphocytes # (Auto) 1.8 0.4-5.4 10 ^3/uL Monocytes # (Auto) 0.3 0-1.3 10 ^3/uL Eosinophils # (Auto) 0.1 0-0.8 10 ^3/uL Basophils # (Auto) 0 0-0.2 10 ^3/uL Nucleated Red Blood Cells 0.0 % Prothrombin Time 10.9 9.3-11.8 sec Prothrombin Time INR 1.03 0.9-1.15 Activated Partial Thromboplast Time 28.6 24.5-34.5 SEC Sodium Level 140 136-145 mmol/L Potassium Level 3.7 3.5-5.1 mmol/L Chloride Level 104 98-107 mmol/L Carbon Dioxide Level 29 20-31 mmol/L Anion Gap 7 5-15 Blood Urea Nitrogen 9 9-23 mg/dL Creatinine 0.84 0.550-1.02 mg/dL Glomerular Filtration Rate Calc 96 >90 mL/min BUN/Creatinine Ratio 10.7 10.0-20.0 Serum Glucose 95 74-106 mg/dL Calcium Level 9.9 8.7-10.4 mg/dL Beta HCG, Quantitative 607.0 H 1.5-4.2 mIU/mL Current Medications Medications (Trade) Dose Ordered Sig/Joey Route Start Time Stop Time Status Last Admin Lactated Ringer's 1,000 ml @ 125 mls/hr Q8H ONCE IV 03/28/25 09:15 03/28/25 17:14 DC 03/28/25 09:15 Time of 1ST Reevaluation: 10:06 Reevaluation 1ST: Unchanged Patient Education/Counseling: Diagnosis, Treatment Family Education/Counseling: No Family Present Additional Information Previous visits reviewed: 03/15/25 for vaginal bleeding The following tests were ordered, and results were reviewed by me: Type/Screen, BMP, CBC, PTPTT Additional Information was gathered from interviewing the following independent historians: N/A I reviewed and agreed with the following test results read by other providers: N/A I discussed treatment and results with medical personnel and: patient Comprehensive systems review obtained and negative except for what is stated in the HPI. Departure 1 Departure Time of Disposition: 18:35 (Patient presenting with a concern for ectopic . Discussed the case with Dr. Murrell who will take patient to the operating room today.) Impression: Primary Impression: Ovarian mass Disposition: ADMITTED INPATIENT Admit to: Med Surg Condition: Serious e-Prescriptions Ondansetron Odt 4MG Tab (ZOFRAN PO) 4 Mg Tb 4 MG PO Q4HPRN PRN for 10 Days, #50 TAB ODT TAB-DISSOLVE IN MOUTH, THEN SWALLOW Prov: KWAN MURRELL DO 03/28/25 Ibuprofen (Ibuprofen) 800 Mg Tab 800 MG PO TID for 4 Days, #16 TAB Prov: KWAN MURRELL DO 03/28/25 Hydrocodone-Acetaminophen (Hydrocodone/Acetaminophen 10-325 mg) 1 Tab Tab 1 TAB PO Q6HPRN PRN for 7 Days, #28 TAB Prov: KWAN MURRELL DO 03/28/25 Docusate Sodium (Colace) 100 Mg Cap 1 CAP PO BID, #60 CAP 2 Refills Prov: KWAN MURRELL DO 03/28/25 Critical Care Note Critical Care Time?: No Stability Stability form required: No Heart Score Heart Score: Heart Score Response (Comments) Value History N/A 0 EKG N/A 0 Age N/A 0 Risk Factors N/A 0 Troponin N/A 0 Total 0 I personally scribed for CB JIN MD ([email or web address]) on 03/28/25 at 09:09. Electronically submitted by Indra José ([email or web address]). I personally scribed for CB JIN MD ([email or web address]) on 03/28/25 at 09:10. Electronically submitted by Indra José ([email or web address]). CB JIN MD Mar 28, 2025 09:09
[2025-03-28 09:15] VITALS: PULSE 65; RESP 16; O2SAT 98
[2025-03-28] MEDS: LACTATED RINGER'S 1,000 ML IV ONE (09:15)
[2025-03-28 09:31] LABS: Hematocrit 42.7 % (36.0-46.0); Hemoglobin 14.7 g/dL (12.2-16.2); Mean Corpuscular Hemoglobin 31.8 pg (28.0-32.0); Mean Corpuscular Volume 92.3 fL (80.0-100.0); Nucleated Red Blood Cells % 0.0 %
--- NOTE | 2025-03-28 09:39 | DVHHP2 ---
Review of Systems Allergies: Coded Allergies: NO KNOWN ALLERGIES (Unverified , 08/01/13) Exam Vital Signs Vital Signs Date Time Temp Pulse Resp B/P (MAP) Pulse Ox O2 Delivery O2 Flow Rate FiO2 03/28/25 08:58 97.5 73 20 135/82 (99) 97 97.5 Labs/Xrays Labs Test 03/28/25 09:10 Range/Units White Blood Count 4.9 4.4-10.8 10^3/uL Red Blood Count 4.62 4.0-5.20 10^6/uL Hemoglobin 14.7 12.2-16.2 g/dL Hematocrit 42.7 36.0-46.0 % Mean Corpuscular Volume 92.3 80.0-100.0 fL Mean Corpuscular Hemoglobin 31.8 28.0-32.0 pg Mean Corpuscular Hemoglobin Concent 34.4 32.0-36.0 g/dL Red Cell Distribution Width 12.7 11.8-14.3 % Platelet Count 235 140-450 10^3/uL Mean Platelet Volume 7.8 6.9-10.8 fL Neutrophils (%) (Auto) 54.2 37.0-80.0 % Lymphocytes (%) (Auto) 36.8 10.0-50.0 % Monocytes (%) (Auto) 7.0 0.0-12.0 % Eosinophils (%) (Auto) 1.2 0.0-7.0 % Basophils (%) (Auto) 0.8 0.0-2.0 % Neutrophils # (Auto) 2.6 1.6-8.6 10 ^3/uL Lymphocytes # (Auto) 1.8 0.4-5.4 10 ^3/uL Monocytes # (Auto) 0.3 0-1.3 10 ^3/uL Eosinophils # (Auto) 0.1 0-0.8 10 ^3/uL Basophils # (Auto) 0 0-0.2 10 ^3/uL Nucleated Red Blood Cells 0.0 % SEPSIS Sepsis Screen Date sepsis recognized/suspect: Mar 28, 2025 Time Sepsis recognized/suspect: 900 Recent Procedure: No On Antibiotic Therapy: No Respiratory Rate >20: No Heart Rate >90: No Temp<36 C (96.8 F) or >38.3 C: No SBP <90 or MAP <65 mmHG: No New Acute Mental Status Change: No Is the patient on CPAP, BIPAP,: No Physician Orders PTPTT (03/28/25 08:59) Type And Screen (03/28/25 08:59) Basic Metabolic Panel (03/28/25 08:59) * Emotional Disabilities Teacher Consultation (03/28/25 08:59) Obtain Consent For: (03/28/25 09:03) Lactated Ringer's (03/28/25 09:15) Vital Signs Date Time Temp Pulse Resp B/P (MAP) Pulse Ox O2 Delivery O2 Flow Rate FiO2 03/28/25 08:58 97.5 73 20 135/82 (99) 97 97.5 Laboratory Tests Test 03/28/25 09:10 White Blood Count 4.9 10^3/uL (4.4-10.8) Date of Service: Mar 28, 2025 Billing Provider: SARAH ADAM MD Common Visit Codes: 69781-[id number] INP/OBS CARE (HIGH), 28678-[id number] CARE 30- 74 MIN (66 minutes) Secondary Visit Codes: 09407-[id number] CARE PLAN 30 MINUTES (20 minutes) SARAH ADAM MD Mar 28, 2025 09:39
[2025-03-28 09:48] LABS: INR 1.03 (0.9-1.15); Partial Thromboplastin Time 28.6 SEC (24.5-34.5); Prothrombin Time 10.9 sec (9.3-11.8)
[2025-03-28 09:51] LABS: Chloride 104 mmol/L (98-107); Potassium 3.7 mmol/L (3.5-5.1); Sodium 140 mmol/L (136-145)
[2025-03-28 09:52] LABS: Anion Gap 7 (5-15); Calcium 9.9 mg/dL (8.7-10.4); Carbon Dioxide 29 mmol/L (20-31)
[2025-03-28 09:57] LABS: BUN/Creatinine Ratio 10.7 (10.0-20.0); Glucose 95 mg/dL (74-106)
[2025-03-28 09:59] LABS: Blood Urea Nitrogen 9 mg/dL (9-23)
[2025-03-28 11:51] LABS: Urine Protein, UAD Negative (Negative)
--- NOTE | 2025-03-28 14:18 | DVHHP ---
CHIEF COMPLAINT: Abnormal , abnormal uterine bleeding, beta-hCG. HISTORY OF PRESENT ILLNESS: The patient is a 29-year-old female admitted for 4 times a week vaginal bleeding. The patient was seen here yesterday. Sono in the office was suspicious for ectopic . The patient was sent for official sono, which revealed the same thing. Uterus is 7.7-8 weeks' size. Left ovary normal; however, right ovary has a solid vascular structure adjacent to right ovary of 2 x 2 x 2 cm. Some free fluid was noted. Subsequently, the patient's beta-hCG was abnormally rising 400 to 500 to 600 and the patient continues with vaginal bleeding. Options were discussed. The patient fully understands the possibility of loss of affected side tube or ovary, or both, discussed with the patient. The patient will be sent to emergency room and will be taken to the operating room after the blood workup is done. Official sono has been confirmed, suspicious for ectopic . PAST MEDICAL HISTORY: None. PAST SURGICAL HISTORY: None. SOCIAL HISTORY: None. FAMILY HISTORY: None. OBSTETRIC AND GYNECOLOGIC HISTORY: One SAB. REVIEW OF SYSTEMS: Consistent with HPI. PHYSICAL EXAMINATION: VITAL SIGNS: Stable, afebrile. HEENT: Within normal limits. CARDIOVASCULAR: Regular rate and rhythm. LUNGS: Clear to auscultation. BREASTS: Symmetrical, no masses. ABDOMEN: Soft, nontender. PELVIC: Scant bleeding, uterus 8-week size. Adnexa nontender. EXTREMITIES: No clubbing, cyanosis, or edema. IMPRESSION: Rule out ectopic . PLAN: Laparoscopy, possible laparotomy, possible removal of affected tube or ovary. Informed consent obtained. The patient wishes to proceed with the planned procedure. Risks and complications of surgery including infection, bleeding, hematoma formation, injury to bowel or bladder, possibility of DVT, pulmonary embolism, and risks of anesthesia were discussed with the patient. The patient fully understands. All questions answered. The patient wishes to proceed with planned procedure. DO GERRY Troncoso TID: [id number] RECEIPT: [id number]
[2025-03-28] MEDS: D5W/SOD CHLO 0.9% 1,000 ML IV SCH (15:45)
[2025-03-28] MEDS: ceFAZolin 1GM/50ML 50 ML IV ONE (15:45)
[2025-03-28] MEDS: ACETAMINOPHEN 500 MG TAB or CAP PO ONE (15:45)
[2025-03-28] MEDS: CELECOXIB 100 MG CAP PO ONE (15:45)
[2025-03-28] MEDS: GABAPENTIN 300 MG CAP PO ONE (15:45)
[2025-03-28] MEDS ORDERED: LIDOCAINE 2% (LOCAL ANESTH.) PF 5ml SDV ONE ×2 (16:09→17:01)
[2025-03-28] MEDS ORDERED: ONDANSETRON HCL 4 MG/2 ML VIAL ONE (16:09)
[2025-03-28] MEDS ORDERED: ROCURONIUM 10MG/ML 10ML VIAL IV ONE (16:10)
[2025-03-28] MEDS ORDERED: fentaNYL CITRATE 100 MCG/2 ML VL ONE (16:10)
[2025-03-28] MEDS ORDERED: SUGAMMADEX 200mg/2ml Vial (100MG/ML) IV ONE (16:10)
[2025-03-28] MEDS ORDERED: KETOROLAC TROMETH 30 MG/ML 1ML VIAL ONE (16:10)
[2025-03-28] MEDS ORDERED: GLYCOPYRROLATE 0.2 MG/ML 1ML VIAL ONE (16:10)
[2025-03-28] MEDS ORDERED: PROPOFOL 10 MG/ML 20 ML IV ONE (16:10)
[2025-03-28] MEDS ORDERED: ceFAZolin 1GM VL ONE (16:11)
[2025-03-28] MEDS: LIDOCAINE W/ EPINEPHRINE 1% 20ML VIAL ONE (17:04)
--- NOTE | 2025-03-28 17:10 | DVHOP2 ---
Operative Report DATE OF OPERATION: 03/28/25 PREOPERATIVE DIAGNOSES: ruptured Right ectopic . POSTOPERATIVE DIAGNOSES: same SURGEON: Melissa Muhammad D.O./khris ANESTHESIOLOGIST: megan lopez TYPE OF ANESTHESIA : General CONSENT: The patient was informed of the risks and benefits of the procedure. The patient was informed of the risks and benefits of the procedure. These include but are not limited to , complications of anesthesia, postoperative infection, incomplete relief of symptoms, recurrence of symptoms, damage to blood vessels, nerves and tendons, deep venous thrombosis, pulmonary embolism and possible need for repeat surgery in the future. FINDINGS: Right tubal . Uterus is 8-week sized. Left tube and ovary are normal appearing. Right ovary is normal appearing.400ml of hemoperitoneum PROCEDURES: Laparoscopic Right Salpingectomy. PROCEDURE IN DETAIL: The patient was taken to the operating room where she was placed under general anesthesia. She was then prepped and draped in the usual sterile manner in dorsal lithotomy position. Bladder was emptied using Gutierrez catheter. Examination under anesthesia revealed the above findings. A weighted speculum was placed in the vagina. Anterior lip of the cervix was grasped using single-tooth tenaculum. Uterus was sounded to 8 cm. HUMI catheter was placed. Attention was then turned to the abdomen where Veress needle was introduced. Abdomen was distended with 3L of CO2 gas. Using Visiport, under direct visualization, abdomen was entered through the umbilical fold. A 5-mm trocar was placed in the suprapubic region. A 12-mm trocar was placed on the left lateral aspect of the abdomen 4 cm away from the midline. Survey of pelvis and abdomen revealed right tubal .ruptured partially and 400ml of hemoperitoneum was notted Left tube and ovary were grossly normal appearing. A THOMAS stapler was then introduced to excise the ectopic . This was done successfully. Hemoclips were applied. Pelvis was copiously irrigated with normal saline. Using endobag, the specimen was brought out through the 12-mm port. No bleeding was noted. Incisional ports were closed using 4-0 Vicryl as well as 0 Vicryl for the bigger port enclosing the fascia. The patient tolerate d the procedure well. The 12-mm trocar site was closed using staplers. HUMI catheter was removed from the vagina and cervix. The patient was taken to the recovery room in a stable condition. ESTIMATED BLOOD LOSS: Estimated blood loss was noted to be 20 mL. Visit Coding OBGYN Date of Service: Mar 28, 2025 Billing Provider: MELISSA MUHAMMAD DO TUNG NUT GROWER Common Visit Codes: [id number] INP/OBS CARE(HIGH) TUNG NUT GROWER Procedure Codes: 23831-EB ECTOP PREG TUBAL/OVARIAN MELISSA MUHAMMAD DO Mar 28, 2025 17:10
--- NOTE | 2025-03-28 17:12 | POSTOP ---
Post-Operative Note Post-Operative Note Preop Diagnosis r/o ectopic preg Postop Diagnosis: ruptured r ectopic preg Operation performed laparoscopic r salpingectomy Specimen r tube Anesthesia: General Anesthesiologist: megan lopez Blood Loss(fluid mgmt) 20ml Surgeon Melissa Murrell Dial Polisher khris Implant clip Complications & Mgmt none Date 03/28/25 Time 17:10 Visit Coding OBGYN Date of Service: Mar 28, 2025 Billing Provider: MELISSA MURRELL DO CHARTERED ACCOUNTANT Common Visit Codes: [id number] INP/OBS CARE(HIGH) CHARTERED ACCOUNTANT Procedure Codes: 13347-IL ECTOP PREG TUBAL/OVARIAN MELISSA MURRELL DO Mar 28, 2025 17:12
[2025-03-28] MEDS ORDERED: ZOFR4T PO (17:13)
[2025-03-28] MEDS ORDERED: HYDR-4072 PO (17:13)
[2025-03-28] MEDS ORDERED: DOCU-94 PO (17:13)
[2025-03-28] MEDS ORDERED: IBUP-1456 PO (17:13)
[2025-03-28] MEDS ORDERED: DOCUSATE SOD 100 MG CAP PO PRN (17:15)
[2025-03-28] MEDS: LACTATED RINGER'S 1,000 ML IV SCH (17:15)
[2025-03-28] MEDS ORDERED: RHO (D) IMMUNE GLOBULIN 300 MCG INJ IM PRN (17:15)
[2025-03-28] MEDS ORDERED: HYDROmorphone HCL 2 MG/ML VL/or syr IV PRN ×2 (17:15→17:45)
[2025-03-28] MEDS ORDERED: BISACODYL 10 MG RECT SUPP PR PRN (17:15)
[2025-03-28] MEDS ORDERED: ONDANSETRON HCL 4 MG/2 ML VIAL IV PRN ×2 (17:15→17:45)
[2025-03-28] MEDS: BUPIVACAINE 0.5% P/F INJ 10 ML VIAL ONE (17:32)
[2025-03-28 17:38] VITALS: O2SAT 100
[2025-03-28] MEDS ORDERED: fentaNYL CITRATE 100 MCG/2 ML VL IV PRN (17:45)
[2025-03-28] MEDS ORDERED: FLUMAZENIL 0.1 MG/ML INJ 10ML MDV IV PRN (17:45)
[2025-03-28] MEDS ORDERED: hydrALAZINE HCL 20 MG/ML VL IV PRN (17:45)
[2025-03-28] MEDS ORDERED: NALOXONE HCL 0.4 MG/ML VIAL IV PRN (17:45)
[2025-03-28] MEDS: SIMETHICONE 80 MG CHEWABLE TABLET PO SCH (18:00)
[2025-03-28 21:00] VITALS: BP 119/70; PULSE 75; RESP 18; TEMP 99.4; O2SAT 99
[2025-03-28] MEDS: ceFAZolin 1GM/50ML 50 ML IV SCH (21:56)
[2025-03-28 22:04] LABS: Hematocrit 41.4 % (36.0-46.0); Hemoglobin 14.0 g/dL (12.2-16.2); Mean Corpuscular Hemoglobin 31.3 pg (28.0-32.0); Mean Corpuscular Volume 92.4 fL (80.0-100.0); Nucleated Red Blood Cells % 0.0 %
[2025-03-29 01:00] VITALS: BP 112/64; PULSE 83; RESP 18; TEMP 97.5; O2SAT 96
--- NOTE | 2025-03-29 04:43 | DVHPN2 ---
Chief Complaints Patient reports: No new complaints Nursing reports: No new complaints Objective Vitals Vital Signs Date Time Temp Pulse Resp B/P (MAP) Pulse Ox O2 Delivery O2 Flow Rate FiO2 03/29/25 01:00 97.5 83 18 112/64 (80) 96 97.5 03/28/25 20:35 Room Air* 0 21 Medications Current Medications Medications (Trade) Dose Ordered Sig/Joey Route PRN Reason Start Time Stop Time Status Last Admin Acetaminophen/ Hydrocodone Bitart ([place] 10/325MG Tab) 1 tab Q4HP PRN PO SEVERE PAIN (7-10 PAIN SCALE) 03/29/25 04:15 Bisacodyl (Dulcolax Suppository) 10 mg DAILYP PRN NM FOR CONSTIPATION 03/28/25 17:15 Cefazolin Sodium 50 ml @ 100 mls/hr Q8HR IV 03/28/25 22:00 03/28/25 21:56 Dextrose/Sodium Chloride 1,000 ml @ 75 mls/hr [id number] IV 03/28/25 15:45 Dimethicone (Mylicon Tab) 80 mg QID PO 03/28/25 18:00 03/28/25 21:56 Docusate Sodium (Colace Capsule) 100 mg Q12HP PRN PO FOR CONSTIPATION 03/28/25 17:15 Lactated Ringer's 1,000 ml @ 50 mls/hr Q20H IV 03/29/25 04:15 Ondansetron HCl (Zofran) 4 mg Q4HP PRN IV NAUSEA / VOMITING 03/28/25 17:15 Lungs: Normal Cardiovascular: Normal Abdominal: Soft Musculoskeletal: Normal Extremities: Normal Studies Laboratory Tests 03/28/25 21:37 03/28/25 09:10 Test 03/28/25 09:10 Range/Units Serum Glucose 95 74-106 mg/dL Ass/Plan Assessment S/P LAPAROSCOPIC RS Plan SUPPORTIVE CARE DC HOME TODAY FU ONE WEEK Visit Coding OBGYN Date of Service: Mar 29, 2025 Billing Provider: KWAN MUHAMMAD DO CLOCK SMITH Common Visit Codes: [id number] INP/OBS CARE(HIGH) KWAN MUHAMMAD DO Mar 29, 2025 04:43
[2025-03-29] MEDS: LACTATED RINGER'S 1,000 ML IV SCH (04:59)
[2025-03-29 05:00] VITALS: BP 98/65; PULSE 61; RESP 18; TEMP 97.5; O2SAT 96
[2025-03-29] MEDS: HYDROcodone-ACET 10/325MG TAB PO PRN (05:00)
--- NOTE | 2025-03-29 05:13 | DVHDS2 ---
Physician Discharge Progress N Final Diagnosis: ruptured r ectopic preg Operations or Procedures: Operations or Procedures laparoscopic r salpingectomy Condition on Discharge: Good Disposition: Home Discharge Instructions: Diet: Regular Activity: Light activity Medications: deisy castillo Follow Up Care: Specialist: wednesday 10 am Discharge Statement: "Patient was advised to return to the ER or call 911 if any headaches, dizziness, shortness of breath, chest pain, abdominal pain, bleeding, fevers, or worsening of medical condition. Patient was counseled about treatment plan, medications, possible side effects, patientverbalized understanding. All questions were answered to the best of my ability. This discharge took greater then 30 minutes in planning, reviewing documentation, counseling the patient, and discussing with other team members." Visit Coding OBGYN Date of Service: Mar 29, 2025 Billing Provider: KWAN MUHAMMAD DO INSULATION MANAGER Common Visit Codes: [id number] INP/OBS CARE(HIGH), 03988-XFI/OBS DISCH DAY >30MIN INSULATION MANAGER Procedure Codes: 48371-YW ECTOP PREG TUBAL/OVARIAN KWAN MUHAMMAD DO Mar 29, 2025 05:13
[2025-03-29 05:32] LABS: Hematocrit 38.8 % (36.0-46.0); Hemoglobin 13.4 g/dL (12.2-16.2); Mean Corpuscular Hemoglobin 32.0 pg (28.0-32.0); Mean Corpuscular Volume 92.3 fL (80.0-100.0); Nucleated Red Blood Cells % 0.0 %
[2025-03-29 05:41] LABS: Chloride 106 mmol/L (98-107); Potassium 4.3 mmol/L (3.5-5.1); Sodium 139 mmol/L (136-145)
[2025-03-29 05:42] LABS: Anion Gap 9 (5-15); Calcium 9.2 mg/dL (8.7-10.4); Carbon Dioxide 24 mmol/L (20-31)
[2025-03-29 05:47] LABS: BUN/Creatinine Ratio 10.8 (10.0-20.0)
[2025-03-29 05:49] LABS: Blood Urea Nitrogen 8 mg/dL (9-23); Glucose 122 mg/dL (74-106)
[2025-03-29 08:00] VITALS: PULSE 68; RESP 18; O2SAT 97
[2025-03-29 09:23] VITALS: BP 100/57; PULSE 68; RESP 18; TEMP 98.5; O2SAT 97
[2025-03-29] MEDS ORDERED: KETAMINE 50mg/ML 10ml Vial (500mg/10ml) IV ONE (11:57)
[2025-03-30 10:07] LABS: Hepatitis B Surface Antigen Negative (Negative)
[2025-03-30 10:30] LABS: Hepatitis C Antibody Negative (Negative)
== END 2025-03-29 11:58 | disposition home or self-care (01) | DRG 817 ==
LOC: EEVIPCON 08:50 → ER 08:50 → OVERFLOW 09:36 → EAST 09:39
PROVIDERS: ADMIT Internal Medicine; ATTEND Internal Medicine
PROC: 0UT54ZZ Resection of Right Fallopian Tube, Percutaneous Endoscopic Approach (ICD-10-PCS; 2025-03-28)
PROC: 10T24ZZ Resection of Products of Conception, Ectopic, Percutaneous Endoscopic Approach (ICD-10-PCS; principal; 2025-03-28 16:06)
DX: O00.101 Right tubal pregnancy without intrauterine pregnancy (principal); K66.1 Hemoperitoneum
CPT/HCPCS: 36415; 80048; 81001; 84702; 85025; 85610; 85730; 86803; 86850; 86900; 86901; 87340; 96360; G0378; J0690; J1100; J1885; J2003; J2405; J2704; J3490

== ENCOUNTER → 2025-05-01 | Outpatient (CLI) | payer BC ==
[~2025-05-01] MED LIST changes: +DOCU-94 PO; +HYDR-4072 PO; +IBUP-1456 PO; +ZOFR4T PO
== END | disposition home or self-care (01) ==
LOC: LAB 13:12
PROVIDERS: ATTEND Internal Medicine
DX: L76.82 Other postprocedural complications of skin and subcutaneous tissue (principal)
CPT/HCPCS: 87205

== ENCOUNTER 2025-09-11 12:40 | Outpatient (CLI) | payer BC ==
[2025-09-14 06:07] LABS: Chlamydia Trachomatis, NAA Negative (Negative); Neisseria gonorrhoeae, NAA Negative (Negative)
== END 2025-09-11 17:00 | disposition home or self-care (01) ==
LOC: LAB 12:40
PROVIDERS: ATTEND Internal Medicine
DX: Z11.3 Encounter for screening for infections with a predominantly sexual mode of transmission (principal)
CPT/HCPCS: 36415; 86703; 86780; 86803